=== PATIENT | male | born 2000 | race Caucasian/White ===

== ENCOUNTER → 2022-02-25 11:28 | Outpatient (CLI) | payer OTHER, SELFPAY ==
--- NOTE | ~2022-02-25 | XR_ITS ---
EXAMINATION: XR foot RT min 3V DATE: 02/25/2022 11:59 INDICATION: Right foot pain TECHNIQUE: Dorsoplantar, lateral, and oblique views of the right foot were obtained. COMPARISON: None. FINDINGS: Bone alignment is normal. There is no fracture. The joint spaces are normal. No radiopaque foreign body is identified. IMPRESSION: 1. No acute osseous abnormality or radiopaque foreign body identified. Reviewed, dictated and finalized at location A.
== END ==
PROVIDERS: PCP Nurse Practitioner; Visit Provider Nurse Practitioner
DX: M79.671 Pain in right foot (principal)
CPT/HCPCS: 73630